=== PATIENT | male | born 1990 | race Caucasian/White ===

== ENCOUNTER 2017-04-03 19:34 | Observation (INO) | payer OTHER ==
[~2017-04-03] VITALS: Ht 180.3 cm; Wt 100.2 kg
[~2017-04-03 19:34] MED LIST: CARDIZEM30 MG PO; DESYREL50 MG PO; HYDROCODON-ACE1 EAC2 PO; IBUPROFEN800 MG PO; NEURONTIN300 MG PO; NICODERM 14MG PA1 EA TD; PERCOCET 5-3251 EACH PO; ZESTRIL20 M1 PO
[2017-04-03 20:34] LABS: BASO % 0.3 % (0.2-1.2); EOS # 0.1 10_X3_uL (0.0-0.5); EOS % 0.8 % (0.8-7.0); GRAN # 10.5 10_X3_uL (1.8-5.4); GRAN % 72.7 % (34.0-67.9); HEMATOCRIT 49.1 % (40-51); HEMOGLOBIN 17.8 g/dL (13.7-17.5); LYMPH # 2.6 10_X3_uL (1.3-3.6); LYMPH % 18.1 % (21.8-53.1); MEAN CORPUSCULAR HEMOGLOBIN 31.9 pg (27.0-33.0); MEAN CORPUSCULAR HGB CONC 36.3 g/dL (32.0-36.0); MEAN PLATELET VOLUME 10.3 fl (7.5-11.5); MONO # 1.2 10_X3_uL (0.3-0.8); MONO % 8.1 % (5.3-12.2); PLATELET COUNT 243 x10_3/uL (163-337); RED BLOOD COUNT 5.58 x10_6/uL (4.6-6.1); RED CELL DISTRIBUTION WIDTH 12.3 % (11.6-14.4); WHITE BLOOD COUNT 14.4 x10_3/uL (4.2-9.1)
[2017-04-03 20:54] LABS: ALBUMIN 4.9 gm/dL (3.4-5.0); ALKALINE PHOSPHATASE 53 U/L (50-136); ALT/SGPT 56 U/L (7.53-40.17); AMYLASE 43 U/L (15.62-74.58); AST/SGOT 33 U/L (6.66-35.34); BILIRUBIN,TOTAL 0.46 mg/dL (0.0-1.0); BLOOD UREA NITROGEN 12 mg/dL (7-18); CARBON DIOXIDE 21 mmol/L (21-32); CREATININE 0.9 mg/dL (0.6-1.3); GLUCOSE,RANDOM 102 mg/dL (70-99); LIPASE 53 U/L (6.75-60.75); POTASSIUM 3.5 mmol/L (3.5-5.1); SODIUM 142 mmol/L (136-145); TOTAL PROTEIN 7.6 gm/dL (6.4-8.2)
[2017-04-04 00:58] LABS: URINE BILIRUBIN NEGATIVE (NEGATIVE); URINE BLOOD TRACE (NEGATIVE); URINE GLUCOSE (UA) NORMAL (NORMAL); URINE KETONE 3+ (NEGATIVE); URINE LEUKOCYTE ESTERASE NEGATIVE (NEGATIVE); URINE NITRATE NEGATIVE (NEGATIVE); URINE PROTEIN TRACE (NEGATIVE)
[2017-04-04 01:07] LABS: URINE MUCUS TRACE; URINE RBC 0-5 /[HPF] (0-2)
[2017-04-04 06:38] LABS: BASO % 0.1 % (0.2-1.2); EOS % 0.1 % (0.8-7.0); GRAN # 9.1 10_X3_uL (1.8-5.4); GRAN % 84.3 % (34.0-67.9); HEMATOCRIT 44.8 % (40-51); HEMOGLOBIN 15.9 g/dL (13.7-17.5); LYMPH # 1.2 10_X3_uL (1.3-3.6); LYMPH % 11.4 % (21.8-53.1); MEAN CORPUSCULAR HEMOGLOBIN 31.9 pg (27.0-33.0); MEAN CORPUSCULAR HGB CONC 35.5 g/dL (32.0-36.0); MEAN PLATELET VOLUME 10.8 fl (7.5-11.5); MONO # 0.4 10_X3_uL (0.3-0.8); MONO % 4.1 % (5.3-12.2); PLATELET COUNT 228 x10_3/uL (163-337); RED BLOOD COUNT 4.98 x10_6/uL (4.6-6.1); RED CELL DISTRIBUTION WIDTH 12.1 % (11.6-14.4); WHITE BLOOD COUNT 10.8 x10_3/uL (4.2-9.1)
[2017-04-04 06:48] LABS: ALBUMIN 4.3 gm/dL (3.4-5.0); ALKALINE PHOSPHATASE 46 U/L (50-136); ALT/SGPT 47 U/L (7.53-40.17); AST/SGOT 27 U/L (6.66-35.34); BILIRUBIN,TOTAL 0.45 mg/dL (0.0-1.0); BLOOD UREA NITROGEN 11 mg/dL (7-18); CALCIUM 8.7 mg/dL (8.7-10.7); CARBON DIOXIDE 22 mmol/L (21-32); CREATININE 0.9 mg/dL (0.6-1.3); GLUCOSE,RANDOM 124 mg/dL (70-99); SODIUM 142 mmol/L (136-145)
[2017-04-06 07:18] LABS: HEMATOCRIT 44.2 % (40-51); HEMOGLOBIN 15.3 g/dL (13.7-17.5); MEAN CORPUSCULAR HEMOGLOBIN 31.3 pg (27.0-33.0); MEAN CORPUSCULAR HGB CONC 34.6 g/dL (32.0-36.0); MEAN CORPUSCULAR VOLUME 90.4 fL (79-92); MEAN PLATELET VOLUME 10.5 fl (7.5-11.5); RED BLOOD COUNT 4.89 x10_6/uL (4.6-6.1); RED CELL DISTRIBUTION WIDTH 12.2 % (11.6-14.4)
[2017-04-06 07:39] LABS: ALKALINE PHOSPHATASE 46 U/L (50-136); ALT/SGPT 64 U/L (7.53-40.17); AMYLASE 110 U/L (15.62-74.58); AST/SGOT 52 U/L (6.66-35.34); BILIRUBIN,TOTAL 1.07 mg/dL (0.0-1.0); BLOOD UREA NITROGEN 12 mg/dL (7-18); CALCIUM 8.6 mg/dL (8.7-10.7); CARBON DIOXIDE 30 mmol/L (21-32); GLUCOSE,RANDOM 95 mg/dL (70-99); LIPASE 114 U/L (6.75-60.75); POTASSIUM 3.8 mmol/L (3.5-5.1); SODIUM 143 mmol/L (136-145); TOTAL PROTEIN 6.5 gm/dL (6.4-8.2)
== END 2017-04-06 12:10 | disposition home or self-care (01) ==
LOC: ER 19:34 → MS 22:17 → UNDODEPER 04-07 22:50
PROVIDERS: Emergency Medicine; ADMIT Family Medicine
PROC: 0DBN8ZX Excision of Sigmoid Colon, Via Natural or Artificial Opening Endoscopic, Diagnostic (ICD-10-PCS; principal; 2017-04-05)
DX: K62.5 Hemorrhage of anus and rectum (principal); K92.1 Melena; R11.2 Nausea with vomiting, unspecified; B19.20 Unspecified viral hepatitis C without hepatic coma; F32.9 Major depressive disorder, single episode, unspecified; R10.9 Unspecified abdominal pain; M25.511 Pain in right shoulder; R19.7 Diarrhea, unspecified; D41.9 Neoplasm of uncertain behavior of unspecified urinary organ; R30.0 Dysuria; R42 Dizziness and giddiness; E11.9 Type 2 diabetes mellitus without complications; J44.9 Chronic obstructive pulmonary disease, unspecified; I10 Essential (primary) hypertension; M54.9 Dorsalgia, unspecified; G47.00 Insomnia, unspecified; F17.210 Nicotine dependence, cigarettes, uncomplicated; Z80.9 Family history of malignant neoplasm, unspecified; Z82.49 Family history of ischemic heart disease and other diseases of the circulatory system
CPT/HCPCS: 36415; 74150; 80053; 80307; 81001; 82150; 83690; 85025; 94664; 96361; 96374; 96375; 96376; 99070; 99284-25; G0378; J2704; Q0169

== ENCOUNTER 2017-04-07 17:07 | Emergency (ER) | payer OTHER ==
[2017-04-07 17:50] LABS: URINE BILIRUBIN NEGATIVE (NEGATIVE); URINE BLOOD NEGATIVE (NEGATIVE); URINE GLUCOSE (UA) NORMAL (NORMAL); URINE KETONE 1+ (NEGATIVE); URINE LEUKOCYTE ESTERASE TRACE (NEGATIVE); URINE NITRATE NEGATIVE (NEGATIVE); URINE PROTEIN TRACE (NEGATIVE)
[2017-04-07 17:56] LABS: BASO % 0.3 % (0.2-1.2); EOS % 0.3 % (0.8-7.0); GRAN # 8.8 10_X3_uL (1.8-5.4); GRAN % 77.3 % (34.0-67.9); HEMATOCRIT 43.6 % (40-51); HEMOGLOBIN 16.2 g/dL (13.7-17.5); LYMPH # 1.8 10_X3_uL (1.3-3.6); LYMPH % 15.6 % (21.8-53.1); MEAN CORPUSCULAR HEMOGLOBIN 32.4 pg (27.0-33.0); MEAN CORPUSCULAR HGB CONC 37.2 g/dL (32.0-36.0); MEAN CORPUSCULAR VOLUME 87.2 fL (79-92); MEAN PLATELET VOLUME 10.4 fl (7.5-11.5); MONO # 0.7 10_X3_uL (0.3-0.8); MONO % 6.5 % (5.3-12.2); PLATELET COUNT 246 x10_3/uL (163-337); WHITE BLOOD COUNT 11.3 x10_3/uL (4.2-9.1)
[2017-04-07 18:05] LABS: URINE AMORPHOUS SEDIMENT TRACE; URINE BACTERIA 1+ (NONE SEEN); URINE MUCUS 1+; URINE RBC 0-5 /[HPF] (0-2); URINE SQUAMOUS EPITHELIAL CELL 0-10 /[HPF] (NONE SEEN); URINE WBC 0-5 /[HPF] (0-3)
[2017-04-07 18:12] LABS: ALBUMIN 4.5 gm/dL (3.4-5.0); ALKALINE PHOSPHATASE 47 U/L (50-136); ALT/SGPT 52 U/L (7.53-40.17); AMYLASE 21 U/L (15.62-74.58); AST/SGOT 24 U/L (6.66-35.34); BILIRUBIN,TOTAL 0.72 mg/dL (0.0-1.0); BLOOD UREA NITROGEN 11 mg/dL (7-18); CALCIUM 8.9 mg/dL (8.7-10.7); CARBON DIOXIDE 25 mmol/L (21-32); CREATININE 0.8 mg/dL (0.6-1.3); GLUCOSE,RANDOM 107 mg/dL (70-99); LIPASE 16 U/L (6.75-60.75); POTASSIUM 3.8 mmol/L (3.5-5.1); SODIUM 141 mmol/L (136-145)
== END 2017-04-07 23:20 | disposition short-term general hospital (02) ==
LOC: ER 17:07
PROVIDERS: Internal Medicine
DX: R11.2 Nausea with vomiting, unspecified (principal); R19.7 Diarrhea, unspecified; Z86.19 Personal history of other infectious and parasitic diseases; F17.210 Nicotine dependence, cigarettes, uncomplicated; Z79.899 Other long term (current) drug therapy; Z88.0 Allergy status to penicillin
CPT/HCPCS: 36415; 80053; 81001; 82150; 83690; 85025; 87086; 96361; 96374; 96375; 99284; 99284-25